=== PATIENT | male | born 1955 | race Caucasian/White ===

== ENCOUNTER 2025-03-11 14:51 | Inpatient (IN) | payer MEDICARE ==
[~2025-03-11] VITALS: Ht 177.8 cm; Wt 79.5 kg
[2025-03-11] MEDS: IV NS 0.9% 1,000 ML BAG IV ONE (16:10)
[2025-03-11 16:24] LABS: PLATELET COUNT (AUTO) 263 K/uL (150-450); RED BLOOD CELL COUNT(AUTO) 3.33 MIL/uL (4.5-6.0); RED CELL DISTRIBUTION WIDTH 24.9 % (11.5-15.0); WHITE BLOOD COUNT (AUTO) 7.7 K/uL (4.3-11.0)
[2025-03-11 16:35] LABS: CALCIUM, SERUM 8.5 mg/dL (8.5-10.1); CREATININE 1.9 mg/dL (0.6-1.3); SODIUM SERUM 148 mmol/L (136-145); UREA NITROGEN, BLOOD 24 mg/dL (7-18)
[2025-03-11 16:40] LABS: INR 1.14 (0.91-1.10)
[2025-03-11 16:41] LABS: LACTIC ACID 1.3 mmol/L (0.4-2.0)
[2025-03-11] MEDS: PIPERACILLIN /TAZOBACTAM 3.375 G in IV D5W 50 ML IV ONE (16:45)
[2025-03-11 16:47] LABS: ASPARTATE AMINOTRANSFERASE 65 U/L (15-37); TOTAL PROTEIN, SERUM 6.8 g/dL (6.4-8.2)
[2025-03-11] MEDS ORDERED: ACETAMINOPHEN 650 MG/SUPP.RECT RC ONE (16:57)
[2025-03-11] MEDS: ACETAMINOPHEN 650 MG/SUPP.RECT RC ONE (17:00)
[2025-03-11] MEDS: VANCOMYCIN 1 GM in IV D5W 250 ML IV ONE (17:05)
[2025-03-11 17:46] LABS: APPEARANCE,URINE CLEAR (CLEAR); BLOOD, URINE 2+ Ery/uL (NEGATIVE); LEUKOCYTE ESTERASE ,URINE 1+ (NEGATIVE); NITRITE, URINE NEGATIVE (NEGATIVE); UGLUCOSE NEGATIVE (NEGATIVE)
[2025-03-11 17:52] LABS: ADD URINE CULTURE YES
[2025-03-11] MEDS ORDERED: ASPIRIN 300 MG/SUPP.RECT RC ONE (20:59)
[2025-03-11] MEDS: ASPIRIN 300 MG/SUPP.RECT RC ONE (21:00)
[2025-03-11 21:43] LABS: OCCULT BLOOD STOOL NEGATIVE (NEGATIVE)
[2025-03-12] MEDS: VANCOMYCIN 1 GM in IV D5W 250 ML IV SCH (08:16)
[2025-03-12] MEDS: PIPERACILLIN /TAZOBACTAM 3.375 G in IV D5W 50 ML IV SCH (09:26)
[2025-03-12] MEDS ORDERED: ZOLPIDEM TARTRATE 5 MG TABLET PO PRN (12:30)
[2025-03-12] MEDS ORDERED: DOSING PER PHARMACY-VANCOMYCIN IV XX PRN (12:30)
[2025-03-12] MEDS ORDERED: MAG HYDROX/AL HYDROX/SIMETH 30 ML UDC PO PRN (12:30)
[2025-03-12] MEDS ORDERED: Z GUARD REMEDY 4 OZ OINT TP PRN (12:30)
[2025-03-12] MEDS ORDERED: ENOXAPARIN SODIUM 80 MG/0.8 ML DISP.SYRIN SQ ONE (12:37)
[2025-03-12] MEDS: ENOXAPARIN SODIUM 80 MG/0.8 ML DISP.SYRIN SQ SCH (12:45)
[2025-03-12 16:00] VITALS: BP 148/84; TEMP 98.6; O2SAT 97
[2025-03-12 16:50] LABS: CALCIUM, SERUM 8.5 mg/dL (8.5-10.1); CREATININE 1.7 mg/dL (0.6-1.3); SODIUM SERUM 150.0 mmol/L (136-145); UREA NITROGEN, BLOOD 22.0 mg/dL (7-18)
[2025-03-12] MEDS: METOPROLOL TARTRATE 25 MG TABLET PO SCH (18:52)
[2025-03-12 20:00] VITALS: BP 116/66; TEMP 97.3; O2SAT 100
[2025-03-12] MEDS: IV NS 0.9% 1,000 ML IV PRN (20:00)
[2025-03-13] VITALS: BP 124/71; TEMP 97.5; O2SAT 100
[2025-03-13 04:00] VITALS: BP 128/75; TEMP 97.7; O2SAT 99
[2025-03-13] MEDS: PANTOPRAZOLE 40 MG TABLET.DR PO SCH (07:30)
[2025-03-13 08:00] VITALS: BP 119/66; TEMP 97.2; O2SAT 100
[2025-03-13 08:02] LABS: CALCIUM, SERUM 8.5 mg/dL (8.5-10.1); CREATININE 1.7 mg/dL (0.6-1.3); PHOSPHORUS 3.4 mg/dL (2.5-4.9); SODIUM SERUM 151.0 mmol/L (136-145); UREA NITROGEN, BLOOD 20.0 mg/dL (7-18)
[2025-03-13 08:13] LABS: LDL 87.0 mg/dL (0-99)
[2025-03-13 08:16] LABS: PLATELET COUNT (AUTO) 248 K/uL (150-450); RED BLOOD CELL COUNT(AUTO) 3.33 MIL/uL (4.5-6.0); RED CELL DISTRIBUTION WIDTH 25.6 % (11.5-15.0); WHITE BLOOD COUNT (AUTO) 7.7 K/uL (4.3-11.0)
[2025-03-13] MEDS: VANCOMYCIN HCL 1.25 GM in IV D5W 250 ML IV SCH (08:32)
[2025-03-13 12:00] VITALS: BP 101/71; TEMP 97; O2SAT 98
[2025-03-13] MEDS: IV 1/2NS 1000 ML 1,000 ML IV SCH (12:05)
[2025-03-13] MEDS ORDERED: DEXTROSE 50%-WATER 50 ML DISP.SYRIN IV PRN ×2 (12:30)
[2025-03-13] MEDS ORDERED: INSULIN REGULAR, HUMAN 100 UNIT/ML 3 ML VIAL SQ PRN (12:30)
[2025-03-13] MEDS: BLOOD SUGAR DIAGNOSTIC 1 EACH STRIP IN SCH (13:02)
[2025-03-13] MEDS: INSULIN REGULAR, HUMAN 100 UNIT/ML 3 ML VIAL SQ PRN (13:04)
[2025-03-13 16:00] VITALS: BP 128/81; TEMP 98; O2SAT 100
[2025-03-13] MEDS ORDERED: BLOOD SUGAR DIAGNOSTIC 1 EACH STRIP IN SCH (17:30)
[2025-03-13 20:00] VITALS: BP 139/84; TEMP 98.6; O2SAT 97
[2025-03-13] MEDS ORDERED: NITROGLYCERIN 0.4 MG/TAB BOTTLE SL PRN (23:00)
[2025-03-14] VITALS: BP 139/78; TEMP 98.4; O2SAT 100
[2025-03-14 04:00] VITALS: BP 143/79; TEMP 97.7; O2SAT 100
[2025-03-14 08:00] VITALS: BP 152/96; TEMP 97.3; O2SAT 100
[2025-03-14] MEDS: THERAHONEY GEL 1.5 OZ TUBE TP SCH (09:29)
[2025-03-14 11:02] LABS: PLATELET COUNT (AUTO) 225 K/uL (150-450); RED BLOOD CELL COUNT(AUTO) 3.70 MIL/uL (4.5-6.0); RED CELL DISTRIBUTION WIDTH 26.2 % (11.5-15.0); WHITE BLOOD COUNT (AUTO) 9.2 K/uL (4.3-11.0)
[2025-03-14 11:34] LABS: ASPARTATE AMINOTRANSFERASE 31.0 U/L (15-37); CALCIUM, SERUM 8.4 mg/dL (8.5-10.1); CREATININE 1.4 mg/dL (0.6-1.3); PHOSPHORUS 3.1 mg/dL (2.5-4.9); SODIUM SERUM 145.0 mmol/L (136-145); TOTAL PROTEIN, SERUM 6.9 g/dL (6.4-8.2); UREA NITROGEN, BLOOD 17.0 mg/dL (7-18)
[2025-03-14 11:47] LABS: CREATINE KINASE, TOTAL 59.0 U/L (39-308)
[2025-03-14 12:00] VITALS: BP 137/95; TEMP 97.3; O2SAT 100
[2025-03-14 16:00] VITALS: BP 140/85; TEMP 97.3; O2SAT 98
[2025-03-14 20:00] VITALS: BP 150/85; TEMP 97.7; O2SAT 98
[2025-03-15] VITALS (7 sets, daily range): BP systolic 133–155; BP diastolic 86–99; TEMP 97.6–98.6; O2SAT 93–99
[2025-03-15] MEDS: VANCOMYCIN HCL 1.25 GM in IV D5W 250 ML IV SCH (10:00)
[2025-03-15 10:12] LABS: PLATELET COUNT (AUTO) 261 K/uL (150-450); RED BLOOD CELL COUNT(AUTO) 4.12 MIL/uL (4.5-6.0); RED CELL DISTRIBUTION WIDTH 26.1 % (11.5-15.0); WHITE BLOOD COUNT (AUTO) 8.6 K/uL (4.3-11.0)
[2025-03-15 10:41] LABS: ASPARTATE AMINOTRANSFERASE 26.0 U/L (15-37); CALCIUM, SERUM 8.7 mg/dL (8.5-10.1); CREATININE 1.5 mg/dL (0.6-1.3); PHOSPHORUS 3.5 mg/dL (2.5-4.9); SODIUM SERUM 144.0 mmol/L (136-145); TOTAL PROTEIN, SERUM 7.5 g/dL (6.4-8.2); UREA NITROGEN, BLOOD 19.0 mg/dL (7-18)
[2025-03-15] MEDS ORDERED: VANCOMYCIN 1 GM in IV D5W 250 ML IV SCH (22:00)
[2025-03-16] VITALS (29 sets, daily range): BP systolic 93–142; BP diastolic 56–93; TEMP 97.1–98.8; O2SAT 91–100
[2025-03-16 06:50] LABS: PLATELET COUNT (AUTO) 271 K/uL (150-450); RED BLOOD CELL COUNT(AUTO) 3.54 MIL/uL (4.5-6.0); RED CELL DISTRIBUTION WIDTH 24.7 % (11.5-15.0); WHITE BLOOD COUNT (AUTO) 8.6 K/uL (4.3-11.0)
[2025-03-16 07:20] LABS: ASPARTATE AMINOTRANSFERASE 22.0 U/L (15-37); CALCIUM, SERUM 8.5 mg/dL (8.5-10.1); CREATININE 1.6 mg/dL (0.6-1.3); PHOSPHORUS 4.0 mg/dL (2.5-4.9); SODIUM SERUM 143.0 mmol/L (136-145); TOTAL PROTEIN, SERUM 6.8 g/dL (6.4-8.2); UREA NITROGEN, BLOOD 20.0 mg/dL (7-18)
[2025-03-16] MEDS: VANCOMYCIN 1 GM in IV D5W 250 ML IV SCH (08:29)
[2025-03-16 09:13] LABS: ABG BASE EXCESS -6.0 mmol/L (-2.0-3.0); ABG OXYGEN SATURATION 91.3 % (94.0-98.0); ABG PCO2 48.2 mmHg (35.0-48.0); ABG PH 7.257 (7.350-7.450); ABG PO2 70.2 mmHg (83.0-108.0); ABG TOTAL HEMOGLOBIN 9.7 G/dL (13.5-17.5); FLOW, BLOOD GAS 4.00 L/min (0.00-30.00); SITE, ABG RIGHT RADIAL
[2025-03-16] MEDS: FUROSEMIDE 40 MG/4 ML VIAL IV ONE (10:26)
[2025-03-16] MEDS ORDERED: PIPERACILLIN /TAZOBACTAM 3.375 G in IV D5W 50 ML IV SCH (10:30)
[2025-03-16] MEDS: VANCOMYCIN 750 MG in IV D5W 250 ML IV SCH (10:36)
[2025-03-16 11:00] LABS: ABG BASE EXCESS -8.1 mmol/L (-2.0-3.0); ABG OXYGEN SATURATION 98.1 % (94.0-98.0); ABG PCO2 34.1 mmHg (35.0-48.0); ABG PH 7.320 (7.350-7.450); ABG PO2 116.6 mmHg (83.0-108.0); ABG TOTAL HEMOGLOBIN 8.9 G/dL (13.5-17.5); SITE, ABG RIGHT RADIAL
[2025-03-16] MEDS: IPRATROPIUM NEB FS 0.5 MG/2.5 ML AMPUL.NEB NEB SCH (11:27)
[2025-03-16] MEDS: ACETYLCYSTEINE 10% SOLN 400 MG/4 ML VIAL NEB SCH (11:27)
[2025-03-16] MEDS: PIPERACILLIN /TAZOBACTAM 3.375 G in IV D5W 100 ML IV SCH (12:13)
[2025-03-17] VITALS (34 sets, daily range): BP systolic 113–141; BP diastolic 55–98; TEMP 97.9–98.7; O2SAT 92–100
[2025-03-17 01:08] LABS: PTH, INTACT 36 pg/mL (15-65)
[2025-03-17 04:04] LABS: PLATELET COUNT (AUTO) 230 K/uL (150-450); RED BLOOD CELL COUNT(AUTO) 3.21 MIL/uL (4.5-6.0); RED CELL DISTRIBUTION WIDTH 24.8 % (11.5-15.0); WHITE BLOOD COUNT (AUTO) 5.8 K/uL (4.3-11.0)
[2025-03-17 04:12] LABS: ASPARTATE AMINOTRANSFERASE 21.0 U/L (15-37); CALCIUM, SERUM 8.3 mg/dL (8.5-10.1); CREATININE 1.9 mg/dL (0.6-1.3); PHOSPHORUS 3.1 mg/dL (2.5-4.9); SODIUM SERUM 146.0 mmol/L (136-145); TOTAL PROTEIN, SERUM 6.3 g/dL (6.4-8.2); UREA NITROGEN, BLOOD 22.0 mg/dL (7-18)
[2025-03-17 08:24] LABS: ABG BASE EXCESS -3.8 mmol/L (-2.0-3.0); ABG OXYGEN SATURATION 84.2 % (94.0-98.0); ABG PCO2 39.3 mmHg (35.0-48.0); ABG PH 7.354 (7.350-7.450); ABG PO2 52.5 mmHg (83.0-108.0); ABG TOTAL HEMOGLOBIN 8.7 G/dL (13.5-17.5); FRACTIONATED INSPIRED OXYGEN 2.0 %
[2025-03-17] MEDS: IV D5W 1,000 ML IV SCH (12:32)
[2025-03-17] MEDS: MORPHINE SULFATE INJ 2 MG/ML DISP.SYRIN IV PRN (17:19)
[2025-03-17] MEDS: ONDANSETRON HCL/PF 4 MG/2 ML VIAL IVP PRN (17:25)
[2025-03-17] MEDS: GLUCERNA 1.2 1,000 ML BOTTLE NG SCH (18:21)
[2025-03-17] MEDS: ACETAMINOPHEN 325 MG TABLET PO PRN (22:43)
[2025-03-18] VITALS (14 sets, daily range): BP systolic 103–127; BP diastolic 51–77; TEMP 97.3–97.7; O2SAT 95–100
[2025-03-18 07:59] LABS: CALCIUM, SERUM 8.9 mg/dL (8.5-10.1); CREATININE 2.3 mg/dL (0.6-1.3); PHOSPHORUS 3.7 mg/dL (2.5-4.9); SODIUM SERUM 147.0 mmol/L (136-145); UREA NITROGEN, BLOOD 21.0 mg/dL (7-18)
[2025-03-18 08:07] LABS: PLATELET COUNT (AUTO) 246 K/uL (150-450); RED BLOOD CELL COUNT(AUTO) 3.25 MIL/uL (4.5-6.0); RED CELL DISTRIBUTION WIDTH 25.7 % (11.5-15.0); WHITE BLOOD COUNT (AUTO) 3.9 K/uL (4.3-11.0)
[2025-03-18] MEDS ORDERED: DOSING PER PHARMACY-CEFEPIME IVPB XX PRN (11:30)
[2025-03-18] MEDS: CEFEPIME 2 GM in IV D5W 100 ML IV SCH (12:00)
[2025-03-18 13:09] LABS: INR 1.2 (0.91-1.10)
[2025-03-18] MEDS ORDERED: VANCOMYCIN 750 MG in IV D5W 250 ML IV SCH (21:00)
[2025-03-18] MEDS: HEPARIN INFUSION/D5W 500 ML IV PRN (21:23)
[2025-03-19] VITALS (15 sets, daily range): BP systolic 111–140; BP diastolic 62–92; TEMP 97.3–98.1; O2SAT 94–100
[2025-03-19 03:34] LABS: PLATELET COUNT (AUTO) 247 K/uL (150-450); RED BLOOD CELL COUNT(AUTO) 3.06 MIL/uL (4.5-6.0); RED CELL DISTRIBUTION WIDTH 25.8 % (11.5-15.0); WHITE BLOOD COUNT (AUTO) 4.5 K/uL (4.3-11.0)
[2025-03-19 03:48] LABS: ASPARTATE AMINOTRANSFERASE 20.0 U/L (15-37); CALCIUM, SERUM 8.2 mg/dL (8.5-10.1); CREATININE 2.4 mg/dL (0.6-1.3); PHOSPHORUS 3.5 mg/dL (2.5-4.9); SODIUM SERUM 138.0 mmol/L (136-145); TOTAL PROTEIN, SERUM 6.3 g/dL (6.4-8.2); UREA NITROGEN, BLOOD 23.0 mg/dL (7-18)
[2025-03-19] MEDS: PROSOURCE / PROSTAT (PYXIS) 30 ML UDC NG SCH (11:30)
[2025-03-20] VITALS (23 sets, daily range): BP systolic 101–141; BP diastolic 65–86; TEMP 97.3–98.1; O2SAT 91–100
[2025-03-20 06:38] LABS: APPEARANCE,URINE CLOUDY (CLEAR); BLOOD, URINE 1+ Ery/uL (NEGATIVE); LEUKOCYTE ESTERASE ,URINE 3+ (NEGATIVE); NITRITE, URINE NEGATIVE (NEGATIVE); UGLUCOSE TRACE mg/dL (NEGATIVE)
[2025-03-20 06:46] LABS: ADD URINE CULTURE YES; SQUAMOUS EPITHELIAL CELL,UR Rare /HPF (None Seen)
[2025-03-20 06:47] LABS: EOSINOPHIL,URINE None Seen
[2025-03-20 06:52] LABS: CREATININE, URINE 66.0 MG/DL (30.0-125.0); URINE SODIUM, RANDOM 22.0 mmol/l (40-220); URINE TOTAL PROTEIN 182.8 mg/dL (0-11.9)
[2025-03-20 07:35] LABS: PLATELET COUNT (AUTO) 242 K/uL (150-450); RED BLOOD CELL COUNT(AUTO) 3.15 MIL/uL (4.5-6.0); RED CELL DISTRIBUTION WIDTH 25.8 % (11.5-15.0); WHITE BLOOD COUNT (AUTO) 5.0 K/uL (4.3-11.0)
[2025-03-20 07:38] LABS: INR 1.1 (0.91-1.10)
[2025-03-20 07:42] LABS: ASPARTATE AMINOTRANSFERASE 24.0 U/L (15-37); CALCIUM, SERUM 8.4 mg/dL (8.5-10.1); CREATININE 2.3 mg/dL (0.6-1.3); PHOSPHORUS 4.3 mg/dL (2.5-4.9); SODIUM SERUM 136.0 mmol/L (136-145); TOTAL PROTEIN, SERUM 6.4 g/dL (6.4-8.2); UREA NITROGEN, BLOOD 28.0 mg/dL (7-18)
[2025-03-20 09:53] LABS: ABG BASE EXCESS -1.9 mmol/L (-2.0-3.0); ABG OXYGEN SATURATION 97.3 % (94.0-98.0); ABG PCO2 43.0 mmHg (35.0-48.0); ABG PH 7.356 (7.350-7.450); ABG PO2 104.6 mmHg (83.0-108.0); ABG TOTAL HEMOGLOBIN 8.5 G/dL (13.5-17.5); FLOW, BLOOD GAS 2.00 L/min (0.00-30.00); FRACTIONATED INSPIRED OXYGEN 28.0 %; SITE, ABG LEFT RADIAL
[2025-03-20 22:17] LABS: PROTEIN, BODY FLUID 1.5 G/DL
[2025-03-20 23:31] LABS: APPEARANCE,SPUN,BODY FLUID CLEAR (CLEAR); TOTAL VOLUME,BODY FLUID 1550 mL
[2025-03-20 23:32] LABS: WBC, BODY FLUID 139 /cu. mm. (0-200)
[2025-03-20 23:35] LABS: MONOCYTES,BODY FLUID 8 %
[2025-03-21] VITALS (35 sets, daily range): BP systolic 89–128; BP diastolic 48–88; TEMP 97.7–98.5; O2SAT 89–100
[2025-03-21 04:20] LABS: PLATELET COUNT (AUTO) 251 K/uL (150-450); RED BLOOD CELL COUNT(AUTO) 3.38 MIL/uL (4.5-6.0); RED CELL DISTRIBUTION WIDTH 25.6 % (11.5-15.0); WHITE BLOOD COUNT (AUTO) 6.4 K/uL (4.3-11.0)
[2025-03-21 04:33] LABS: ASPARTATE AMINOTRANSFERASE 21.0 U/L (15-37); CALCIUM, SERUM 8.6 mg/dL (8.5-10.1); CREATININE 2.1 mg/dL (0.6-1.3); PHOSPHORUS 4.4 mg/dL (2.5-4.9); SODIUM SERUM 137.0 mmol/L (136-145); TOTAL PROTEIN, SERUM 6.5 g/dL (6.4-8.2); UREA NITROGEN, BLOOD 31.0 mg/dL (7-18)
[2025-03-21] MEDS: VENLAFAXINE XR 37.5 MG CAP.SR.24H PO SCH (08:27)
[2025-03-21] MEDS: ALPRAZOLAM 0.25 MG TABLET PO ONE (11:40)
[2025-03-22] VITALS (39 sets, daily range): BP systolic 102–143; BP diastolic 55–92; TEMP 97.5–98.6; O2SAT 94–100
[2025-03-22 04:38] LABS: PLATELET COUNT (AUTO) 239 K/uL (150-450); RED BLOOD CELL COUNT(AUTO) 3.11 MIL/uL (4.5-6.0); RED CELL DISTRIBUTION WIDTH 25.9 % (11.5-15.0); WHITE BLOOD COUNT (AUTO) 6.1 K/uL (4.3-11.0)
[2025-03-22 04:53] LABS: CALCIUM, SERUM 8.6 mg/dL (8.5-10.1); CREATININE 2.2 mg/dL (0.6-1.3); PHOSPHORUS 3.7 mg/dL (2.5-4.9); SODIUM SERUM 138.0 mmol/L (136-145); UREA NITROGEN, BLOOD 34.0 mg/dL (7-18)
[2025-03-22 08:02] LABS: ABG BASE EXCESS -1.1 mmol/L (-2.0-3.0); ABG OXYGEN SATURATION 93.6 % (94.0-98.0); ABG PCO2 40.3 mmHg (35.0-48.0); ABG PH 7.388 (7.350-7.450); ABG PO2 73.0 mmHg (83.0-108.0); ABG TOTAL HEMOGLOBIN 8.9 G/dL (13.5-17.5)
[2025-03-22 08:07] LABS: COMPLEMENT C3, SERUM 108 mg/dL (82-167); COMPLEMENT C4, SERUM 44 mg/dL (12-38)
[2025-03-23] VITALS (13 sets, daily range): BP systolic 119–141; BP diastolic 72–83; TEMP 97.3–100; O2SAT 92–100
[2025-03-23 06:54] LABS: PLATELET COUNT (AUTO) 228 K/uL (150-450); RED BLOOD CELL COUNT(AUTO) 3.03 MIL/uL (4.5-6.0); RED CELL DISTRIBUTION WIDTH 25.7 % (11.5-15.0); WHITE BLOOD COUNT (AUTO) 5.7 K/uL (4.3-11.0)
[2025-03-23 07:16] LABS: CALCIUM, SERUM 8.7 mg/dL (8.5-10.1); CREATININE 2.2 mg/dL (0.6-1.3); PHOSPHORUS 3.7 mg/dL (2.5-4.9); SODIUM SERUM 141.0 mmol/L (136-145); UREA NITROGEN, BLOOD 33.0 mg/dL (7-18)
[2025-03-24] VITALS (15 sets, daily range): BP systolic 127–164; BP diastolic 70–91; TEMP 97.3–98.2; O2SAT 96–100
[2025-03-24 06:45] LABS: PLATELET COUNT (AUTO) 287 K/uL (150-450); RED BLOOD CELL COUNT(AUTO) 3.76 MIL/uL (4.5-6.0); RED CELL DISTRIBUTION WIDTH 26.4 % (11.5-15.0); WHITE BLOOD COUNT (AUTO) 7.1 K/uL (4.3-11.0)
[2025-03-24 06:55] LABS: CALCIUM, SERUM 9.0 mg/dL (8.5-10.1); CREATININE 2.1 mg/dL (0.6-1.3); PHOSPHORUS 3.8 mg/dL (2.5-4.9); SODIUM SERUM 139.0 mmol/L (136-145); UREA NITROGEN, BLOOD 30.0 mg/dL (7-18)
[2025-03-24] MEDS ORDERED: BARIUM SULFATE 98% 135 ML SUSP.RECON PO ONE (11:31)
[2025-03-24 14:07] LABS: *ANA ANTI-CENTROMERE B AB <0.2 AI (0.0-0.9); *ANA ANTI-DNA(DS) AB, QN 1 IU/mL (0-9); *ANA ANTI-JO-1 <0.2 AI (0.0-0.9); *ANA ANTICHROMATIN ANTIBODY <0.2 AI (0.0-0.9); *ANA RNP ANTIBODIES 0.2 AI (0.0-0.9); *ANA SJOGREN'S ANTI-SS-A 0.8 AI (0.0-0.9); *ANA SJOGREN'S ANTI-SS-B <0.2 AI (0.0-0.9); *ANAANTI-SCLERODERMA-70 AB <0.2 AI (0.0-0.9); *ANASMITH AB <0.2 AI (0.0-0.9); *ANCA ATYPICAL p-ANCA <1:20 titer (Neg:<1:20); *ANCA CYTOPLASMIC (C-ANCA) <1:20 titer (Neg:<1:20); *ANCA PERINUCLEAR (P-ANCA) <1:20 titer (Neg:<1:20)
[2025-03-24] MEDS: hydrALAZINE HCL IV 20 MG VIAL IV PRN (21:45)
[2025-03-25] VITALS (11 sets, daily range): BP systolic 132–160; BP diastolic 74–85; TEMP 97.7–99; O2SAT 96–99
[2025-03-25 07:47] LABS: PLATELET COUNT (AUTO) 294 K/uL (150-450); RED BLOOD CELL COUNT(AUTO) 3.31 MIL/uL (4.5-6.0); RED CELL DISTRIBUTION WIDTH 26.5 % (11.5-15.0); WHITE BLOOD COUNT (AUTO) 6.7 K/uL (4.3-11.0)
[2025-03-25 07:52] LABS: CALCIUM, SERUM 8.7 mg/dL (8.5-10.1); CREATININE 1.9 mg/dL (0.6-1.3); PHOSPHORUS 2.5 mg/dL (2.5-4.9); SODIUM SERUM 139.0 mmol/L (136-145); UREA NITROGEN, BLOOD 29.0 mg/dL (7-18)
[2025-03-25] MEDS: PANTOPRAZOLE 40 MG VIAL IV SCH (08:22)
[2025-03-25] MEDS: BUMETANIDE INJ 8 MG in IV NS 0.9% 48 ML IV ONE (09:50)
[2025-03-26] VITALS (12 sets, daily range): BP systolic 131–154; BP diastolic 71–89; TEMP 98.1–98.5; O2SAT 97–99
[2025-03-26 01:06] LABS: HEPATITIS B SURFACE AB (QUAL) Reactive (.)
[2025-03-26 07:27] LABS: PLATELET COUNT (AUTO) 311 K/uL (150-450); RED BLOOD CELL COUNT(AUTO) 3.68 MIL/uL (4.5-6.0); RED CELL DISTRIBUTION WIDTH 27.3 % (11.5-15.0); WHITE BLOOD COUNT (AUTO) 6.2 K/uL (4.3-11.0)
[2025-03-26 07:47] LABS: CALCIUM, SERUM 9.2 mg/dL (8.5-10.1); CREATININE 2.1 mg/dL (0.6-1.3); SODIUM SERUM 145.0 mmol/L (136-145); UREA NITROGEN, BLOOD 30.0 mg/dL (7-18)
[2025-03-26 08:12] LABS: PHOSPHORUS 3.3 mg/dL (2.5-4.9)
[2025-03-26] MEDS: BUMETANIDE INJ 4 MG in IV NS 0.9% 24 ML IV ONE (11:05)
[2025-03-26] MEDS: POTASSIUM CL. PREMIX PERIPHER. 50 ML IV SCH (11:36)
[2025-03-26] MEDS: NEPRO 1,000 ML BOTTLE GT PRN (17:24)
[2025-03-27] VITALS (15 sets, daily range): BP systolic 106–129; BP diastolic 61–82; TEMP 97–97.9; O2SAT 94–100
[2025-03-27 06:57] LABS: PLATELET COUNT (AUTO) 291 K/uL (150-450); RED BLOOD CELL COUNT(AUTO) 3.66 MIL/uL (4.5-6.0); RED CELL DISTRIBUTION WIDTH 26.9 % (11.5-15.0); WHITE BLOOD COUNT (AUTO) 5.4 K/uL (4.3-11.0)
[2025-03-27 07:04] LABS: ASPARTATE AMINOTRANSFERASE 28.0 U/L (15-37); CALCIUM, SERUM 9.2 mg/dL (8.5-10.1); CREATININE 2.5 mg/dL (0.6-1.3); PHOSPHORUS 3.3 mg/dL (2.5-4.9); SODIUM SERUM 147.0 mmol/L (136-145); TOTAL PROTEIN, SERUM 7.3 g/dL (6.4-8.2); UREA NITROGEN, BLOOD 36.0 mg/dL (7-18)
[2025-03-27 08:10] LABS: *SPE A/G RATIO 0.5 (0.7-1.7); *SPE ALBUMIN 2.2 g/dL (2.9-4.4); *SPE ALPHA-1-GLOBULIN 0.3 g/dL (0.0-0.4); *SPE ALPHA-2-GLOBULIN 1.4 g/dL (0.4-1.0); *SPE BETA GLOBULIN 1.1 g/dL (0.7-1.3); *SPE GLOBULIN, TOTAL 4.5 g/dL (2.2-3.9); *SPE M-SPIKE Not Observed g/dL (Not Observed); *SPE PROTEIN TOTAL 6.7 g/dL (6.0-8.5); *SPEGAMMA GLOBULIN 1.7 g/dL (0.4-1.8)
[2025-03-27] MEDS: PANTOPRAZOLE 40 MG/PACK PACK NG SCH (09:47)
[2025-03-27] MEDS: TWOCAL HN 1,000 ML LIQUID NG PRN (14:09)
[2025-03-27] MEDS: OLANZAPINE 10 MG VIAL IM ONE (23:11)
[2025-03-28] VITALS (17 sets, daily range): BP systolic 96–131; BP diastolic 53–79; TEMP 97.3–97.9; O2SAT 97–100
[2025-03-28 08:17] LABS: PLATELET COUNT (AUTO) 266 K/uL (150-450); RED BLOOD CELL COUNT(AUTO) 3.84 MIL/uL (4.5-6.0); RED CELL DISTRIBUTION WIDTH 27.3 % (11.5-15.0); WHITE BLOOD COUNT (AUTO) 6.5 K/uL (4.3-11.0)
[2025-03-28 08:38] LABS: CALCIUM, SERUM 9.2 mg/dL (8.5-10.1); CREATININE 2.4 mg/dL (0.6-1.3); PHOSPHORUS 2.2 mg/dL (2.5-4.9); SODIUM SERUM 143.0 mmol/L (136-145); UREA NITROGEN, BLOOD 40.0 mg/dL (7-18)
[2025-03-28] MEDS: BUMETANIDE INJ 8 MG in IV NS 0.9% 48 ML IV ONE (11:14)
[2025-03-28] MEDS: METOLAZONE 2.5 MG TABLET PO SCH (11:33)
[2025-03-28] MEDS: NEUTRA PHOS 1 POWD.PACKET PO ONE (16:51)
[2025-03-29] VITALS (18 sets, daily range): BP systolic 102–120; BP diastolic 45–74; TEMP 97–98.2; O2SAT 96–100
[2025-03-29 06:46] LABS: PLATELET COUNT (AUTO) 267 K/uL (150-450); RED BLOOD CELL COUNT(AUTO) 3.73 MIL/uL (4.5-6.0); RED CELL DISTRIBUTION WIDTH 26.9 % (11.5-15.0); WHITE BLOOD COUNT (AUTO) 5.5 K/uL (4.3-11.0)
[2025-03-29 07:16] LABS: CALCIUM, SERUM 9.5 mg/dL (8.5-10.1); CREATININE 2.6 mg/dL (0.6-1.3); PHOSPHORUS 2.8 mg/dL (2.5-4.9); SODIUM SERUM 147.0 mmol/L (136-145); UREA NITROGEN, BLOOD 47.0 mg/dL (7-18)
[2025-03-29] MEDS: MAGNESIUM HYDROXIDE 30 ML UDC PO PRN (16:40)
[2025-03-29] MEDS: LACTULOSE 10 G/15 ML UDC (PYXIS) NG ONE (18:10)
== END 2025-03-29 23:17 | disposition short-term general hospital (02) | DRG 871 ==
LOC: ER 15:15 → TELE1 03-12 12:05 → TELE-TD 03-12 21:04 → TELE1 03-13 10:11 → TELE-TD 03-13 21:26 → TELE1 03-16 09:40 → ICU 03-16 09:49 → TELE1 03-17 13:12 → MED 03-19 20:14 → TELE 03-19 20:51 → ICU 03-20 12:21 → TELE 03-22 18:03
PROVIDERS: ATTEND Nurse Practitioner Acute Care
PROC: 05HD33Z Insertion of Infusion Device into Right Cephalic Vein, Percutaneous Approach (ICD-10-PCS; principal; 2025-03-14)
PROC: 5A09557 Assistance with Respiratory Ventilation, Greater than 96 Consecutive Hours, Continuous Positive Airway Pressure (ICD-10-PCS; 2025-03-14)
PROC: 0W993ZZ Drainage of Right Pleural Cavity, Percutaneous Approach (ICD-10-PCS; 2025-03-21)
DX: A41.9 Sepsis, unspecified organism (principal); G92.8 Other toxic encephalopathy; I21.4 Non-ST elevation (NSTEMI) myocardial infarction; J96.21 Acute and chronic respiratory failure with hypoxia; J96.22 Acute and chronic respiratory failure with hypercapnia; N39.0 Urinary tract infection, site not specified; N17.9 Acute kidney failure, unspecified; I13.0 Hypertensive heart and chronic kidney disease with heart failure and stage 1 through stage 4 chronic kidney disease, or unspecified chronic kidney disease; I50.22 Chronic systolic (congestive) heart failure; G81.94 Hemiplegia, unspecified affecting left nondominant side; R45.851 Suicidal ideations; F32.1 Major depressive disorder, single episode, moderate; E87.4 Mixed disorder of acid-base balance; E87.0 Hyperosmolality and hypernatremia; L97.912 Non-pressure chronic ulcer of unspecified part of right lower leg with fat layer exposed; J90 Pleural effusion, not elsewhere classified; J98.11 Atelectasis; E11.9 Type 2 diabetes mellitus without complications; N18.9 Chronic kidney disease, unspecified; E11.22 Type 2 diabetes mellitus with diabetic chronic kidney disease; E11.40 Type 2 diabetes mellitus with diabetic neuropathy, unspecified; Z89.411 Acquired absence of right great toe; Z87.440 Personal history of urinary (tract) infections; Z53.20 Procedure and treatment not carried out because of patient's decision for unspecified reasons; D63.8 Anemia in other chronic diseases classified elsewhere; E86.0 Dehydration; E86.9 Volume depletion, unspecified; I25.5 Ischemic cardiomyopathy; E11.622 Type 2 diabetes mellitus with other skin ulcer; M89.8X9 Other specified disorders of bone, unspecified site; G93.89 Other specified disorders of brain; R13.10 Dysphagia, unspecified; B35.1 Tinea unguium; T36.8X5A Adverse effect of other systemic antibiotics, initial encounter; Y92.9 Unspecified place or not applicable; S90.415A Abrasion, left lesser toe(s), initial encounter; X58.XXXA Exposure to other specified factors, initial encounter
CPT/HCPCS: 36410; 36415; 36600; 70450-TC; 71045-TC; 71250-TC; 74230-TC; 76770-TC; 80048-TC; 80053-TC; 80061-TC; 80076-TC; 80202-TC; 81001; 82272-TC; 82550-TC; 82570-TC; 82803-TC; 82962-TC; 83520; 83605-TC; 83735-TC; 83970; 84100-TC; 84155; 84165; 84300-TC; 84443-TC; 84484-TC; 85025-TC; 85610-TC; 85652-TC; 85730-TC; 86225; 86235; 86256; 86706; 86803; 87040-TC; 87070-TC; 87075-TC; 87081-TC; 87086-TC; 87102-TC; 87340; 88108-TC; 88305-TC; 89051-TC; 92526; 92611; 93307-TC; 94660; 94760-TC; 94762-TC; 94799-TC; 97110-TC; 97530-TC; 97535-TC; 99082-TC; A4217; A4223; A6213; A6253; A6254; A6403; G0378; J0360; J0692; J1644; J1650; J1815; J1938; J2270; J2405; J2470; J2543; J3373; J3374; J3480; J3490; J7030; J7050; J7060; J7070